=== PATIENT | male | born 1955 | race African-American/Black ===

== ENCOUNTER 2018-02-28 07:13 | Emergency (ER) | payer OTHER ==
[~2018-02-28] VITALS: Ht 182.9 cm; Wt 96.6 kg
[2018-02-28 07:22] VITALS: Ht 182.9 cm; Wt 96.6 kg
[2018-02-28 08:21] LABS: BASOPHIL % 0.5 % (0-2); PLATELET COUNT 180 x10^3mcL (130-400); RED CELL DISTRIBUTION WIDTH 13.4 % (11.5-14.5)
[2018-02-28 08:32] LABS: CALCIUM 8.9 mg/dL (8.5-10.1); CARBON DIOXIDE 29.8 mmol/L (21-32); CHLORIDE SERUM 104 mmol/L (98-107); GFR1 > 60 mL/min; GLUCOSE SERUM 104 mg/dL (74-106); POTASSIUM SERUM 3.6 mmol/L (3.5-5.1); SODIUM SERUM 138 mmol/L (136-145)
[2018-02-28 08:38] LABS: ALBUMIN 3.8 g/dL (3.4-5.0); ALKALINE PHOSPHATASE 56 U/L (46-116); ALT/SGPT 28 U/L (16-63); AST/SGOT 22 U/L (15-37); CHOLESTEROL 151 mg/dL (<200)
[2018-02-28 08:42] LABS: TOTAL PROTEIN, SERUM 8.8 g/dL (6.4-8.2)
[2018-02-28 10:27] VITALS: BP 163/93
== END 2018-02-28 10:27 | disposition home or self-care (01) ==
LOC: ED 07:13
PROVIDERS: Specialist
DX: R42 Dizziness and giddiness (principal); R07.89 Other chest pain; I10 Essential (primary) hypertension
CPT/HCPCS: 36415; G0480; Q0092